=== PATIENT | female | born 1955 | race Caucasian/White ===

== ENCOUNTER → 2024-02-05 07:25 | Outpatient (REF) | payer MEDICARE, SELFPAY | LOC: DHCBC/DCA 07:25 | PROVIDERS: ATTENDING PHYSICIAN Internal Medicine; FAMILY PHYSICIAN Nurse Practitioner Adult Health | DX: I25.810 Atherosclerosis of coronary artery bypass graft(s) without angina pectoris (principal) | CPT/HCPCS: 78452; 93017; A9500; J2785 ==

== ENCOUNTER → 2024-02-18 06:08 | Day surgery (SDC) | payer MEDICARE, SELFPAY ==
[2024-02-18] VITALS (10 sets, daily range): BP systolic 86–144; BP diastolic 54–74; BMI 42.9
[2024-02-18 07:24] LABS: Glucose - Point of Care 87 mg/dl (70-99)
--- NOTE | 2024-02-18 09:08 | ITS.CL.CATH ---
[employer] - Catheterization
Cardiac Catheterization
Procedure Report:
CARDIAC CATHETERIZATION REPORT
Date of Procedure: 02/18/2024
Referring: Dr. Jose Echevarria MD
Indication: atypical angina, moderate risk nuclear stress test
PROCEDURES:
1. Coronary angiography
2. Bypass graft angiography
3. Left heart catheterization
ACCESS:
6 [place] distal left radial artery
CATHETERS:
1. 6 [place] NATALIIA
2. 6 [place] JL4
3. 6 [place] JR4
4. 6 [place] AL1
HEMODYNAMIC DATA:
LV 135/14 (EDP 23) mmHg
AO 135/67 (mean 90) mmHg
CORONARY ANGIOGRAPHY
Dominance: right
LM: small with mild disease
LAD: large vessel giving rise to one large diagonal branch before being totally occluded in the mid-section. The diagonal has severe proximal disease with evidence of competitive flow distally.
LCx: gives rise to a small OM1/ramus, moderate-sized OM2 and OM3. There is diffuse severe disease in the proximal OM2 and evidence of competitive flow distally. OM3 has minimal disease.
RCA: large vessel with serial moderate-severe disease in the proximal to mid-section with evidence of competitive flow distally.
BYPASS GRAFT ANGIOGRAPHY
VALDES-LAD: taken as a pedicle and forms a patent anastomosis with the mid-LAD filling retrograde back to the total occlusion and antegrade to the apex. There are serial mild stenoses in the mid-distal LAD.
[id number]-OM2: large SVG with a patent aorto-ostial anastomosis and sequential anastomoses to the D1, RDPA, and the OM2. All three grafted vessel fill briskly via the SVG and have diffuse moderate disease.
Radiation dose (mGy): 1007
DAP (cm2.Gy): 66.96
Fluoroscopy time (minutes): 11.9
CONCLUSIONS:
1. Coronary artery disease status post-CABG with patent grafts and no unrevascularized obstructive disease.
2. Elevated LV filling pressure and no aortic stenosis.
RECOMMENDATIONS:
1. Aggressive secondary prevention of coronary artery disease.
2. Workup and treatment for etiologies of dyspnea not related to epicardial coronary artery disease.
Copy to: Dr. Jose Echevarria MD
Signed: Mendez Desir MD, PhD
[2024-02-18 09:10] LABS: Glucose - Point of Care 86 mg/dl (70-99)
[2024-02-18] MEDS: TYLENOL 650 MG PO (09:27)
== END | disposition home or self-care (01) ==
LOC: CATH 06:08
PROVIDERS: ATTENDING PHYSICIAN Internal Medicine Cardiovascular Disease; FAMILY PHYSICIAN Nurse Practitioner Adult Health; OTHER PHYSICIAN Internal Medicine
DX: I25.10 Atherosclerotic heart disease of native coronary artery without angina pectoris (principal); Z95.1 Presence of aortocoronary bypass graft; I10 Essential (primary) hypertension; E78.5 Hyperlipidemia, unspecified; E11.9 Type 2 diabetes mellitus without complications; Z82.3 Family history of stroke; Z82.49 Family history of ischemic heart disease and other diseases of the circulatory system; Z79.82 Long term (current) use of aspirin; Z79.4 Long term (current) use of insulin; Z79.84 Long term (current) use of oral hypoglycemic drugs; Z79.85 Long-term (current) use of injectable non-insulin antidiabetic drugs
CPT/HCPCS: 82962; 93459; C1894; Q9967

== ENCOUNTER → 2024-03-07 12:55 | Outpatient (REF) | payer MEDICARE, SELFPAY ==
--- NOTE | 2024-03-07 14:04 | CARDSERVLU ---
Echocardiogram with Lumason completed after protocol screening completed. Allergies verified.
Patent IV site: _Rt AC____
IV site flushed with 0.9% NaCl pre and post administration.
Diluted bolus method utilized to enhance visualization of ventricular johnson.
Total volume given: __2.0__ mL
Patient tolerated all procedures well without complications.
#22 nilsa placed Rt AC. Lumason given. INT d/c'd. dsg applied. pressure held.
== END ==
LOC: RCS 12:55
PROVIDERS: ATTENDING PHYSICIAN Internal Medicine; FAMILY PHYSICIAN Nurse Practitioner Adult Health
DX: R06.02 Shortness of breath (principal)
CPT/HCPCS: 93306; Q9950